=== PATIENT | female | born 1995 | race Caucasian/White ===

== ENCOUNTER 2017-02-17 12:55 | Emergency (ER) | payer OTHER ==
[2017-02-17] MEDS: ACETAMINOPHEN 325 MG TAB PO (17:14)
[2017-02-17] MEDS: ONDANSETRON (ODT) 4 MG TAB ODT (17:14)
[2017-02-17] MEDS: IBUPROFEN 800 MG TAB PO (17:14)
== END 2017-02-17 18:42 | disposition home or self-care (01) ==
LOC: FTE 12:55
DX: R05 Cough (principal); R50.9 Fever, unspecified
CPT/HCPCS: 71045; 87400; 99283-25

== ENCOUNTER 2017-08-05 22:35 | Emergency (ER) | payer OTHER | END 2017-08-06 02:38 | disposition home or self-care (01) | LOC: FTE 08-06 02:38 | DX: S06.0X0A Concussion without loss of consciousness, initial encounter (principal); W20.8XXA Other cause of strike by thrown, projected or falling object, initial encounter; Y92.9 Unspecified place or not applicable | CPT/HCPCS: 70450; 70486; 99285-25 ==

== ENCOUNTER 2018-07-16 18:45 | Emergency (ER) | payer SELFPAY, OTHER | END 2018-07-16 20:44 | disposition left against medical advice (07) | LOC: E/R 18:45 | DX: Z53.21 Procedure and treatment not carried out due to patient leaving prior to being seen by health care provider (principal) ==